=== PATIENT | male | born 1960 | race Caucasian/White ===

== ENCOUNTER 2017-02-20 20:31 | Emergency (ER) | payer BC ==
[2017-02-20] MEDS ORDERED: Benzocaine 20% Topical Spray UD MUCMEM ONE (21:04)
[2017-02-20] MEDS ORDERED: Lidocaine 2% Viscous Solution 15 ML Cup PO ONE (21:04)
--- NOTE | 2017-02-20 21:04 | EDM.PDOC ---
ED HPI GENERAL MEDICAL PROBLEM - General Stated Complaint: PT HAS TOOTHACHE Time Seen by Provider: 02/20/17 20:57 Source of Information: Reports: Patient History Limitations: Reports: No Limitations - History of Present Illness INITIAL COMMENTS - FREE TEXT/NARRATIVE: History of present illness: [56-year-old male presenting with complaints of dental pain. Patient was seen by dentist earlier in the week for evaluation of back molar pain on the left lower side.] Review of systems: As per history of present illness and below otherwise all systems reviewed and negative. Past medical history: As per history of present illness and as reviewed below otherwise noncontributory. Surgical history: As per history of present illness and as reviewed below otherwise noncontributory. Social history: No reported history of drug or alcohol abuse. Family history: As per history of present illness and as reviewed below otherwise noncontributory. Physical exam: HEENT: Atraumatic, normocephalic, pupils reactive, negative for conjunctival pallor or scleral icterus, mucous membranes moist, throat clear, neck supple, nontender, trachea midline. Lungs: Clear to auscultation, breath sounds equal bilaterally, chest nontender. Heart: S1S2, regular, negative for clicks, rubs, or JVD. Abdomen: Soft, nondistended, nontender. Negative for masses or hepatosplenomegaly. Negative for costovertebral tenderness. Pelvis: Stable nontender. Genitourinary: Deferred. Rectal: Deferred. Extremities: Atraumatic, negative for cords or calf pain. Neurovascular unremarkable. Neuro: Awake, alert, oriented. Cranial nerves II through XII unremarkable. Cerebellum unremarkable. Motor and sensory unremarkable throughout. Exam nonfocal. Numerous amalgam fillings noted in bilateral molars predominantly on the left side. Patient with point tenderness and intolerance to pressure on teeth Diagnostics: [] Therapeutics: [Dental balls] Impression: [#1 dental caries #2 dental abscess] Plan: [Dental balls, antibiotics,] Definitive disposition and diagnosis as appropriate pending reevaluation and review of above. - Related Data Allergies Allergy/AdvReac Type Severity Reaction Status Date / Time aspirin Allergy Cannot Verified 02/20/17 20:56 Remember Penicillins Allergy Cannot Verified 02/20/17 20:56 Remember tetracycline Allergy Cannot Verified 02/20/17 20:56 Remember Home Meds: Home Meds Albuterol [Proair HFA] 2 puff IH Q4H PRN 04/26/14 [History] Levothyroxine [Synthroid] 50 mcg PO ACBRK 04/26/14 [History] Mometasone/Formoterol [Dulera 200 MCG/5 MCG] 2 puff INH BID 04/26/14 [History] Montelukast Sodium 10 mg PO BEDTIME 04/26/14 [History] PARoxetine [Paxil] 40 mg PO DAILY 04/26/14 [History] amLODIPine Besylate [Amlodipine Besylate] 5 mg PO DAILY 04/26/14 [History] Hydrocortisone [Hydrocortisone 1% Crm] 1 gm TOP ASDIRECTED PRN 10/24/14 [History ] Olmesartan/Hydrochlorothiazide [Benicar HCT 40-12.5 MG] 1 tab PO BEDTIME [History] Pantoprazole Sodium 40 mg PO ACBREAKFAST 12/03/15 [History] Triamcinolone Acetonide [Triamcinolone Acetonide 0.1% Crm] 1 applic TOP ASDIRECTED PRN 12/03/15 [History] diphenhydrAMINE [Benadryl] 25 mg PO ASDIRECTED PRN 12/03/15 [History] Tiotropium [place] [Spiriva Respimat] 2 puff INH DAILY 02/26/16 [History] Clindamycin HCl 300 mg PO QID #40 capsule 02/20/17 [Rx] Past Medical History HEENT History: Reports: Allergic Rhinitis Other HEENT History: wears glasses Cardiovascular History: Reports: Arrhythmia, High Cholesterol, Hypertension Other Cardiovascular History: has Hollingsworth Parkinson White Syndrome Respiratory History: Reports: Asthma, Pneumothorax, Sleep Apnea Other Respiratory History: uses CPAP Gastrointestinal History: Reports: Colon Polyp, GERD Genitourinary History: Reports: None Musculoskeletal History: Reports: None Neurological History: Reports: None Psychiatric History: Reports: Anxiety Endocrine/Metabolic History: Reports: Hypothyroidism, Obesity/BMI 30+ Hematologic History: Reports: None Other Hematologic History: hx plasmapheresis in 1982 Immunologic History: Reports: None Oncologic (Cancer) History: Reports: None Dermatologic History: Reports: Other (See Below) Other Dermatologic History: atopic dermatitis - Past Surgical History Respiratory Surgical History: Reports: Other (See Below) Social & Family History - Family History Family Medical History: Noncontributory Neurological: Reports: CVA Endocrine/Metabolic: Reports: Diabetes, Type I - Tobacco Use Smoking Status *Q: Never Smoker Second Hand Smoke Exposure: No - Alcohol Use Days Per Week of Alcohol Use: 0 - Recreational Drug Use Recreational Drug Use: No Drug Use in Last 12 Months: No ED ROS GENERAL - Review of Systems Review Of Systems: See Below (History of present illness) ED EXAM, GENERAL - Physical Exam Exam: See Below (History of present illness) Course - Vital Signs Last Recorded V/S: Last Vital Signs Temp 35.9 C 02/20/17 20:56 Pulse 83 02/20/17 20:56 Resp 18 02/20/17 20:56 BP 132/88 02/20/17 20:56 Pulse Ox 94 L 02/20/17 20:56 - Orders/Labs/Meds Meds: Medications Discontinued Medications Generic Name Dose Route Start Last Admin Trade Name Freq PRN Reason Stop Dose Admin Benzocaine 2 each 02/20/17 21:04 Hurricaine One 20% MUCMEM 02/20/17 21:05 ONETIME ONE Lidocaine HCl 15 ml 02/20/17 21:04 Xylocaine 2% Viscous PO 02/20/17 21:05 ONETIME ONE Departure - Departure Time of Disposition: 21:11 Disposition: Home, Self-Care 01 Condition: Good Clinical Impression: Dental abscess - Discharge Information Prescriptions: Clindamycin HCl 300 mg PO QID #40 capsule Referrals: PCP,None [Primary Care Provider] - Additional Instructions: The following information is given to patients seen in the emergency department who are being discharged to home. This information is to outline your options for follow-up care. We provide all patients seen in our emergency department with a follow-up referral. The need for follow-up, as well as the timing and circumstances, are variable depending upon the specifics of your emergency department visit. If you don't have a primary care physician on staff, we will provide you with a referral. We always advise you to contact your personal physician following an emergency department visit to inform them of the circumstance of the visit and for follow-up with them and/or the need for any referrals to a consulting specialist. The emergency department will also refer you to a specialist when appropriate. This referral assures that you have the opportunity for follow-up care with a specialist. All of these measure are taken in an effort to provide you with optimal care, which includes your follow-up. Under all circumstances we always encourage you to contact your private physician who remains a resource for coordinating your care. When calling for follow-up care, please make the office aware that this follow-up is from your recent emergency room visit. If for any reason you are refused follow-up, please contact the [facility] Emergency Department at and asked to speak to the emergency department charge nurse. Take medication as directed Follow-up with us as discussed Return to ED as needed as discussed
[2017-02-20 21:52] VITALS: BP 128/65
== END 2017-02-20 21:26 | disposition home or self-care (01) ==
LOC: MW.ED 20:31
DX: K04.7 Periapical abscess without sinus (principal); K02.9 Dental caries, unspecified; I10 Essential (primary) hypertension; E66.9 Obesity, unspecified; Z88.6 Allergy status to analgesic agent; Z88.0 Allergy status to penicillin; Z88.1 Allergy status to other antibiotic agents; Z79.899 Other long term (current) drug therapy
CPT/HCPCS: 99282; A9270

== ENCOUNTER 2017-04-25 11:43 | Emergency (ER) | payer BC ==
[2017-04-25 11:56] VITALS: BP 112/70
--- NOTE | 2017-04-25 12:11 | EDM.PDOC ---
ED HPI GENERAL MEDICAL PROBLEM - General Chief Complaint: Respiratory Problem Stated Complaint: SORT THROAT, COUGH Time Seen by Provider: 04/25/17 12:07 Source of Information: Reports: Patient History Limitations: Reports: No Limitations - History of Present Illness INITIAL COMMENTS - FREE TEXT/NARRATIVE: HISTORY AND PHYSICAL: []56-year-old gentleman presents with 2 day history of scratchy throat allergies increasing & cough History of Present Illness: []Patient has history of asthma he is currently been taking Benadryl Patient has history of lung collapse chest tube and surgical procedure of pleurodesis. He is taking care of his elderly mother and father and has concerns that he does not get them any illnesses. Patient did have his flu vaccine this fall. Review of Systems: As per history of present illness and below otherwise all systems reviewed and negative. Past medical history: As per history of present illness and as reviewed below otherwise noncontributory. Surgical history: As per history of present illness and as reviewed below otherwise noncontributory. Social history: No reported history of drug or alcohol abuse. Family history: As per history of present illness and as reviewed below otherwise noncontributory. Physical exam: HEENT: Atraumatic, normocehpalic, pupils reactive, negative for conjunctival pallor or scleral icterus, mucous membranes moist, throat clear, neck supple, nontender, trachea midline. There is edema to his eyes and erythema has been rubbing them during the examination. Sclera with mild erythema no exudate is noted mild watering. No cervical adenopathy Lungs: Clear to auscultation, breath sounds equal bilaterally, chest non tender. Fair inspiratory expiratory effort was noted. Heart: S1S2, regular, negative for clicks, rubs, or JVD. Abdomen: Soft, nondistended, nontender. Negative for masses or hepatossplenmegaly. Negative for costovertebral tenderness. Pelvis: Stable nontender. Genitourinary: Deferred. Rectal: Deferred Extremities: Atraumatic, negative for cords or calf pain. No peripheral edema Neurovascular unremarkable. Neuro: Awake, alert, oriented. Cranial nerves II through XII unremarkable. Cerebellum unremarkable. Motor and sensory unremarkable throughout. Exam nonfocal. Chest chest with the patient all the negative aspects of the tests that have been completed Diagnostics: [Influenza, rapid strep, CBC chest x-ray.] Therapeutics: [] Impression: [#1 asthma * 2 allergies] Plan: [Discharged to home Medrol Dosepak Start taking [id number] allergy medicine daily I'll up with your primary care provider] Definitive disposition and diagnosis as appropriate pending reevaluation and review of above. Onset: Gradual (2 days) Duration: Day(s): Location: Reports: Face, Chest Severity: Mild Associated Symptoms: Reports: Cough - Related Data Allergies Allergy/AdvReac Type Severity Reaction Status Date / Time aspirin Allergy Cannot Verified 04/25/17 12:11 Remember Penicillins Allergy Cannot Verified 04/25/17 12:11 Remember tetracycline Allergy Cannot Verified 04/25/17 12:11 Remember Home Meds: Home Meds Albuterol [Proair HFA] 2 puff IH Q4H PRN 04/26/14 [History] Levothyroxine [Synthroid] 88 mcg PO ACBRK 04/26/14 [History] Mometasone/Formoterol [Dulera 200 MCG/5 MCG] 2 puff INH BID 04/26/14 [History] Montelukast Sodium 10 mg PO BEDTIME 04/26/14 [History] PARoxetine [Paxil] 40 mg PO DAILY 04/26/14 [History] amLODIPine Besylate [Amlodipine Besylate] 5 mg PO DAILY 04/26/14 [History] Hydrocortisone [Hydrocortisone 1% Crm] 1 gm TOP ASDIRECTED PRN 10/24/14 [History ] Olmesartan/Hydrochlorothiazide [Benicar HCT 40-12.5 MG] 1 tab PO BEDTIME [History] Pantoprazole Sodium 40 mg PO ACBREAKFAST 12/03/15 [History] Triamcinolone Acetonide [Triamcinolone Acetonide 0.1% Crm] 1 applic TOP ASDIRECTED PRN 12/03/15 [History] diphenhydrAMINE [Benadryl] 25 mg PO ASDIRECTED PRN 12/03/15 [History] Tiotropium [place] [Spiriva Respimat] 2 puff INH DAILY 02/26/16 [History] Clindamycin HCl 600 mg PO QID 04/25/17 [History] Past Medical History - Past Health History Medical/Surgical History: Denies Medical/Surgical History HEENT History: Reports: Allergic Rhinitis Other HEENT History: wears glasses Cardiovascular History: Reports: Arrhythmia, High Cholesterol, Hypertension Other Cardiovascular History: has Hollingsworth Parkinson White Syndrome Respiratory History: Reports: Asthma, Pneumothorax, Sleep Apnea Other Respiratory History: uses CPAP Gastrointestinal History: Reports: Colon Polyp, GERD Genitourinary History: Reports: None Musculoskeletal History: Reports: None Neurological History: Reports: None Psychiatric History: Reports: Anxiety Endocrine/Metabolic History: Reports: Hypothyroidism, Obesity/BMI 30+ Hematologic History: Reports: None Other Hematologic History: hx plasmapheresis in 1982 Immunologic History: Reports: None Oncologic (Cancer) History: Reports: None Dermatologic History: Reports: Other (See Below) Other Dermatologic History: atopic dermatitis - Past Surgical History Head Surgeries/Procedures: Reports: None Respiratory Surgical History: Reports: Other (See Below) Social & Family History - Family History Family Medical History: Noncontributory Neurological: Reports: CVA Endocrine/Metabolic: Reports: Diabetes, Type I - Tobacco Use Smoking Status *Q: Never Smoker Second Hand Smoke Exposure: No - Caffeine Use Caffeine Use: Reports: Soda - Alcohol Use Days Per Week of Alcohol Use: 0 - Recreational Drug Use Recreational Drug Use: No Drug Use in Last 12 Months: No ED ROS GENERAL - Review of Systems Review Of Systems: ROS reveals no pertinent complaints other than HPI. ED EXAM, GENERAL - Physical Exam Exam: See Below (see dictation) Course - Vital Signs Last Recorded V/S: Last Vital Signs Temp 35.8 C 04/25/17 11:51 Pulse 100 04/25/17 11:51 Resp 18 04/25/17 11:51 BP 112/70 04/25/17 11:51 Pulse Ox 95 04/25/17 11:51 - Orders/Labs/Meds Orders: Active Orders 24 hr Category Date Time Status Chest 2V [CR] Stat Exams 04/25/17 12:06 Taken CULTURE STREP A CONFIRMATION [RM] Stat Lab 04/25/17 12:01 Results STREP SCRN A RAPID W CULT CONF [RM] Stat Lab 04/25/17 12:01 Results Labs: Laboratory Tests 04/25/17 Range/Units 12:16 WBC 7.81 (4.0-11.0) K/uL RBC 4.98 (4.50-5.90) M/uL Hgb 13.4 (13.0-17.0) g/dL Hct 41.8 (38.0-50.0) % MCV 83.9 (80.0-98.0) fL MCH 26.9 L (27.0-32.0) pg MCHC 32.1 (31.0-37.0) g/dL RDW Std Deviation 46.3 (28.0-62.0) fl RDW Coeff of Kristyn 15 (11.0-15.0) % Plt Count 279 (150-400) K/uL MPV 9.50 (7.40-12.00) fL Neut % (Auto) 69.4 (48.0-80.0) % Lymph % (Auto) 19.6 (16.0-40.0) % [place] % (Auto) 7.6 (0.0-15.0) % Eos % (Auto) 2.6 (0.0-7.0) % Baso % (Auto) 0.8 (0.0-1.5) % Neut # (Auto) 5.4 (1.4-5.7) K/uL Lymph # (Auto) 1.5 (0.6-2.4) K/uL [place] # (Auto) 0.6 (0.0-0.8) K/uL Eos # (Auto) 0.2 (0.0-0.7) K/uL Baso # (Auto) 0.1 (0.0-0.1) K/uL Nucleated RBC % 0.0 /100WBC Nucleated RBCs # 0 K/uL Departure - Departure Time of Disposition: 12:46 Disposition: Home, Self-Care 01 Condition: Good Clinical Impression: Acute exacerbation of asthma with allergic rhinitis - Discharge Information Referrals: Sachi Rivers DO [Primary Care Provider] - Forms: ED Department Discharge Additional Instructions: The following information is given to patients seen in the emergency department who are being discharged to home. This information is to outline your options for follow-up care. We provide all patients seen in our emergency department with a follow-up referral. The need for follow-up, as well as the timing and circumstances, are variable depending upon the specifics of your emergency department visit. If you don't have a primary care physician on staff, we will provide you with a referral. We always advise you to contact your personal physician following an emergency department visit to inform them of the circumstance of the visit and for follow-up with them and/or the need for any referrals to a consulting specialist. The emergency department will also refer you to a specialist when appropriate. This referral assures that you have the opportunity for followup care with a specialist. All of these measure are taken in an effort to provide you with optimal care, which includes your followup. Under all circumstances we always encourage you to contact your private physician who remains a resource for coordinating your care. When calling for followup care, please make the office aware that this follow-up is from your recent emergency room visit. If for any reason you are refused follow-up, please contact the [facility] emergency department at and asked to speak to the emergency department charge nurse. Prescription has been written for promethazine with codeine [id number] allergy medicine daily Follow-up with your primary care provider next week Medrol Dosepak - My Orders Last 24 Hours: My Active Orders 04/25/17 12:01 CULTURE STREP A CONFIRMATION [RM] Stat STREP SCRN A RAPID W CULT CONF [RM] Stat 04/25/17 12:06 Chest 2V [CR] Stat - Assessment/Plan Last 24 Hours: My Active Orders 04/25/17 12:01 CULTURE STREP A CONFIRMATION [RM] Stat STREP SCRN A RAPID W CULT CONF [RM] Stat 04/25/17 12:06 Chest 2V [CR] Stat
--- NOTE | 2017-04-28 13:49 | CR ---
EXAM DATE: 04/25/17 PATIENT'S AGE: 56 Patient: MARYSOL WHITE Facility: [place], [place] Site . Site : [id number] Study: XRay Chest [id number] 12:30:29 PM Ordering Physician: Doctor Orosco Final Report: Indication : Pain, cough, shortness of breath. Comparison: None. Findings: Compression deformities are noted of lower thoracic vertebral bodies which has resulted in a slight kyphotic deformity. Linear scar or platelike atelectasis is noted in the left lower lung. The right lung is clear. Allowing for patient body habitus and suboptimal history effort, the cardiac and mediastinal silhouettes are within normal limits. The pulmonary vasculature is normal. Impression: Left lower lung linear platelike atelectasis or scar otherwise no acute cardiopulmonary abnormality. Dictated by Alvina Bello MD @ Apr 25 2017 12:52PM (Electronic Signature) Report Signed by Proxy. JULIO
== END 2017-04-25 12:55 | disposition home or self-care (01) ==
LOC: MW.ED 11:43
DX: J45.901 Unspecified asthma with (acute) exacerbation (principal); E78.00 Pure hypercholesterolemia, unspecified; I10 Essential (primary) hypertension; Z88.6 Allergy status to analgesic agent; Z88.0 Allergy status to penicillin; Z88.1 Allergy status to other antibiotic agents; Z79.899 Other long term (current) drug therapy
CPT/HCPCS: 36415; 71020; 71020-26; 85025; 87081; 87804; 87880; 99283

== ENCOUNTER 2020-01-27 07:28 | Day surgery (SDC) | payer BC ==
[~2020-01-27 07:28] MED LIST: Lactated Ringers 1,000 ML IV SCH
[2020-01-27] MEDS ORDERED: fentaNYL 100 MCG/2 ML SDV ONE (07:59)
[2020-01-27] MEDS ORDERED: Midazolam 1 MG/ML 2 ML SDV ONE (07:59)
[2020-01-27] MEDS ORDERED: Propofol 200 MG/20 ML SDV ONE ×2 (07:59→09:25)
--- NOTE | 2020-01-27 08:17 | PCM.PREANE ---
Preanesthetic Assessment - Anesthesia/Transfusion/Family Hx Anesthesia History: Prior Anesthesia Without Reaction Family History of Anesthesia Reaction: No Transfusion History: No Prior Transfusion(s) - Review of Systems General: No Symptoms Pulmonary: No Symptoms Cardiovascular: No Symptoms Gastrointestinal: No Symptoms Neurological: No Symptoms Other: Reports: None - Physical Assessment NPO Status Date: 01/26/20 Height: 5 ft 9 in Weight: 105.233 kg ASA Class: 2 Mental Status: Alert & Oriented x3 Airway Class: Mallampati = 2 Dentition: Reports: Normal Dentition ROM/Head Extension: Full Lungs: Clear to Auscultation, Normal Respiratory Effort Cardiovascular: Regular Rate, Regular Rhythm - Allergies Allergies/Adverse Reactions: Allergies Allergy/AdvReac Type Severity Reaction Status Date / Time aspirin Allergy Cannot Verified 01/25/20 10:30 Remember corn Allergy Rash Verified 01/25/20 10:44 Penicillins Allergy Cannot Verified 01/25/20 10:30 Remember tetracycline Allergy Cannot Verified 01/25/20 10:30 Remember - Blood Blood Available: No - Anesthesia Plan Pre-Op Medication Ordered: None - Acknowledgements Anesthesia Type Planned: General Anesthesia (tiva) Pt an Appropriate Candidate for the Planned Anesthesia: Yes Alternatives and Risks of Anesthesia Discussed w Pt/Guardian: Yes Pt/Guardian Understands and Agrees with Anesthesia Plan: Yes Additional Comments: PMH: mild asthma, severe exczema, htn, thyroid replacement PLAN: tiva PreAnesthesia Questionnaire - Past Health History Medical/Surgical History: Denies Medical/Surgical History HEENT History: Reports: Allergic Rhinitis Other HEENT History: wears glasses Cardiovascular History: Reports: Hypertension Respiratory History: Reports: Asthma, Pneumothorax, Sleep Apnea Other Respiratory History: uses CPAP every night Gastrointestinal History: Reports: Colon Polyp, Diverticulosis, GERD Genitourinary History: Reports: None Musculoskeletal History: Reports: None Neurological History: Reports: None Psychiatric History: Reports: Anxiety Endocrine/Metabolic History: Reports: Hypothyroidism, Obesity/BMI 30+ Hematologic History: Reports: None Immunologic History: Reports: None Oncologic (Cancer) History: Reports: None Dermatologic History: Reports: Other (See Below) Other Dermatologic History: atopic dermatitis - Past Surgical History Head Surgeries/Procedures: Reports: None HEENT Surgical History: Reports: None Cardiovascular Surgical History: Reports: None Respiratory Surgical History: Reports: Other (See Below) Other Respiratory Surgeries/Procedures: Thoracoscopy with Pleural Scarification GI Surgical History: Reports: Colonoscopy Male Surgical History: Reports: None Endocrine Surgical History: Reports: None Neurological Surgical History: Reports: None Musculoskeletal Surgical History: Reports: None Oncologic Surgical History: Reports: None Dermatological Surgical History: Reports: None - SUBSTANCE USE Smoking Status *Q: Never Smoker Recreational Drug Use History: No - HOME MEDS Home Medications: Home Meds Albuterol [Proair HFA] 2 puff IH Q4H PRN 04/26/14 [History] Montelukast Sodium 10 mg PO QAM 04/26/14 [History] PARoxetine [Paxil] 40 mg PO DAILY 04/26/14 [History] amLODIPine Besylate [Amlodipine Besylate] 5 mg PO BEDTIME 04/26/14 [History] Olmesartan/Hydrochlorothiazide [Benicar HCT 40-12.5 MG] 1 tab PO BEDTIME 12/03/15 [History] Triamcinolone Acetonide [Triamcinolone Acetonide 0.1% Crm] 1 applic TOP ASDIRECTED PRN 12/03/15 [History] Tiotropium [place] [Spiriva Respimat] 2 puff INH QAM 02/26/16 [History] Dupilumab [Dupixent Syringe] 1 dose SQ ASDIRECTED 01/25/20 [History] Fluorometholone [Fluorometholone 0.1% Ophth Susp] 1 drop EYEBOTH ASDIRECTED 0 01/25/20 [History] Hydrocortisone [Hydrocortisone 1% Crm] 1 applic TOP ASDIRECTED PRN 01/25/20 [History] Levothyroxine 112 mcg PO QAM 01/25/20 [History] Mometasone/Formoterol [Dulera 200 Mcg-5 Mcg Inhaler] 1 puff INH BID 01/25/20 [History] - CURRENT (IN HOUSE) MEDS Current Meds: Current Medications Lactated Ringer's (Ringers, Lactated) 1,000 mls @ 125 mls/hr IV ASDIRECTED JULIUS Discontinued Medications Fentanyl (Sublimaze) Confirm Administered Dose 100 mcg .ROUTE .STK-MED ONE Stop: 01/27/20 08:00 Lidocaine HCl (Xylocaine-Mpf 1%) Confirm Administered Dose 5 ml .ROUTE .STK-MED ONE Stop: 01/27/20 08:00 Midazolam HCl (Versed 1 Mg/Ml) Confirm Administered Dose 2 mg .ROUTE .STK-MED ONE Stop: 01/27/20 08:00 Propofol (Diprivan 20 Ml) Confirm Administered Dose 400 mg .ROUTE .STK-MED ONE Stop: 01/27/20 08:00
[2020-01-27] MEDS ORDERED: ePHEDrine 50 MG/ML SDV ONE (09:02)
[2020-01-27] MEDS ORDERED: Lactated Ringers 1,000 ML IV SCH (09:45)
--- NOTE | 2020-01-27 09:45 | PCM.OPNOTE ---
- General Post-Op/Procedure Note Date of Surgery/Procedure: 01/27/20 Operative Procedure(s): Colonoscopy with multiple cold polypectomies from the cecum, ascending colon, transverse colon, sigmoid and rectum. Pre Op Diagnosis: Change in bowel habits. Personal history of colon polyps. Post-Op Diagnosis: Cecal, ascending colon, transverse colon, sigmoid and rectal polyps. Pancolonic diverticulosis Anesthesia Technique: MAC (ASA III) Primary Surgeon: Javier Kaur Liner Worker: Sandra Bangura Condition: Good Free Text/Narrative:: DICTATION [id number] CPT CODE 20989
[2020-01-27] MEDS ORDERED: Atropine 0.1 MG/ML 10 ML Syringe IVPUSH PRN ×2 (09:54)
[2020-01-27] MEDS ORDERED: Naloxone 0.4 MG/ML Syringe IVPUSH PRN (09:54)
[2020-01-27] MEDS ORDERED: fentaNYL 100 MCG/2 ML SDV IVPUSH PRN (09:54)
[2020-01-27] MEDS ORDERED: Albuterol 0.083% 2.5 MG/3 ML Neb Soln NEB PRN (09:54)
[2020-01-27] MEDS ORDERED: EPINEPHrine 1:10,000 1 MG/10 ML Syringe IVPUSH PRN (09:54)
[2020-01-27] MEDS ORDERED: 50% Dextrose in Water 50 ML Syringe IVPUSH PRN (09:54)
--- NOTE | 2020-01-27 10:06 | PCM48HPAN ---
Post Anesthesia Note - EVALUATION WITHIN 48HRS OF ANESTHETIC Vital Signs in Normal Range: Yes Patient Participated in Evaluation: Yes Respiratory Function Stable: Yes Airway Patent: Yes Cardiovascular Function Stable: Yes Hydration Status Stable: Yes Pain Control Satisfactory: Yes Nausea and Vomiting Control Satisfactory: Yes Mental Status Recovered: Yes Vital Signs: Last Vital Signs Temp 97.2 F 01/27/20 07:55 Pulse 79 01/27/20 09:58 Resp 14 01/27/20 09:58 BP 96/57 L 01/27/20 09:58 Pulse Ox 94 L 01/27/20 09:58
--- NOTE | 2020-01-27 10:06 | PCM.POSTAN ---
POST ANESTHESIA ASSESSMENT - MENTAL STATUS Mental Status: Alert, Oriented - VITAL SIGNS Vital Signs: Last Vital Signs Temp 97.2 F 01/27/20 07:55 Pulse 79 01/27/20 09:58 Resp 14 01/27/20 09:58 BP 96/57 L 01/27/20 09:58 Pulse Ox 94 L 01/27/20 09:58 - RESPIRATORY Respiratory Status: Respiratory Rate WNL, Airway Patent, O2 Saturation Stable - CARDIOVASCULAR CV Status: Pulse Rate WNL, Blood Pressure Stable - GASTROINTESTINAL GI Status: No Symptoms - POST OP HYDRATION Hydration Status: Adequate & Stable
[2020-01-27 10:28] VITALS: BP 102/64; PULSE 71
--- NOTE | 2020-01-27 12:36 | OR ---
SURGEON: Javier Kaur M.D. DATE OF PROCEDURE: 01/27/2020 OPERATION PERFORMED: Colonoscopy with multiple cold polypectomies from the cecum, ascending colon, transverse colon, sigmoid colon, and rectum. PRIMARY SURGEON: Javier Kaur MD CLUB WAITER/WAITRESS: practice assistant: Sandra Bangura, nurse practitioner student. ANESTHESIA: MAC. ASA CLASSIFICATION: III. PREOPERATIVE DIAGNOSES: 1. Change in bowel habits. 2. History of colon polyps. POSTOPERATIVE DIAGNOSES: 1. Multiple colon polyps from the cecum, ascending colon, transverse colon, sigmoid colon, and rectum. 2. Pancolonic diverticulosis. DESCRIPTION OF PROCEDURE: The patient was taken to the endoscopy room and positioned on the endoscopy table in the left lateral decubitus position. Time-out was called for appropriate identification of the patient and procedure. Monitored anesthesia care was provided. The colonoscope was inserted into the rectum and advanced with minimal difficulty to the cecum. The cecum was identified by internal landmarks and external pressure. The colonoscope was retroflexed to visualize the ascending colon from below, then straightened and slowly withdrawn. Polyps were encountered in the cecum, proximal ascending colon, transverse colon, sigmoid colon, and rectum as noted above. The patient does have pancolonic diverticular changes. The prep was excellent. The cecum, ascending colon, hepatic flexure, transverse colon, splenic flexure, descending colon, sigmoid colon, and rectum were all very well visualized. Again, multiple polyps were encountered as described above. No obvious tumors were noted. There was no stricture or spasm and there was no evidence of inflammatory bowel disease. The area of most significant diverticular change is in the sigmoid colon. Once the colonoscope was withdrawn to the rectum, it was retroflexed to visualize the anal orifice from above. One polyp was seen in a retroflexed view and this was eventually removed after the scope was straightened and slowly withdrawn. No significant hemorrhoidal changes were noted. The colonoscope was then removed with the patient having tolerated the procedure well. He was taken to recovery room in stable condition. JUDY / TEX /[id number]
== END 2020-01-27 11:10 | disposition home or self-care (01) ==
LOC: MW.SDS 07:28
PROVIDERS: ATTEND Surgery
DX: D12.3 Benign neoplasm of transverse colon (principal); D12.0 Benign neoplasm of cecum; D12.8 Benign neoplasm of rectum; D12.5 Benign neoplasm of sigmoid colon; D12.2 Benign neoplasm of ascending colon; K57.30 Diverticulosis of large intestine without perforation or abscess without bleeding; I10 Essential (primary) hypertension; E03.9 Hypothyroidism, unspecified; E66.9 Obesity, unspecified; J45.909 Unspecified asthma, uncomplicated; F32.9 Major depressive disorder, single episode, unspecified; G47.30 Sleep apnea, unspecified; K21.9 Gastro-esophageal reflux disease without esophagitis; F41.9 Anxiety disorder, unspecified; L20.9 Atopic dermatitis, unspecified; J93.9 Pneumothorax, unspecified; Z79.899 Other long term (current) drug therapy; Z86.010 Personal history of colon polyps; Z88.6 Allergy status to analgesic agent; Z88.1 Allergy status to other antibiotic agents; Z88.0 Allergy status to penicillin; Z68.34 Body mass index [BMI] 34.0-34.9, adult; Z83.71 Family history of colonic polyps; Z83.3 Family history of diabetes mellitus
CPT/HCPCS: 45380; J2001; J2250; J2704; J7120; 88305; J3010

== ENCOUNTER 2021-09-13 14:36 | Emergency (ER) | payer BC ==
[2021-09-13 16:45] VITALS: BP 132/71; PULSE 77
== END 2021-09-13 16:44 | disposition home or self-care (01) ==
LOC: MW.ED 14:36
DX: S80.02XA Contusion of left knee, initial encounter (principal); J45.909 Unspecified asthma, uncomplicated; E03.9 Hypothyroidism, unspecified; I10 Essential (primary) hypertension; E66.9 Obesity, unspecified; Z68.36 Body mass index [BMI] 36.0-36.9, adult; Z79.899 Other long term (current) drug therapy; Z88.6 Allergy status to analgesic agent; Z91.018 Allergy to other foods; Z88.0 Allergy status to penicillin; Z88.1 Allergy status to other antibiotic agents; W01.0XXA Fall on same level from slipping, tripping and stumbling without subsequent striking against object, initial encounter
CPT/HCPCS: 71046; 71046-26; 730902650; 73090-50; 73562-26-LT; 73562-LT; 99283-25

== ENCOUNTER 2021-11-07 20:10 | Emergency (ER) | payer BC ==
[2021-11-07 21:25] LABS: CORONAVIRUS COVID-19 NAA POSITIVE (NEGATIVE); INFLUENZA A NAA NEGATIVE (NEGATIVE); INFLUENZA B NAA NEGATIVE (NEGATIVE)
[2021-11-08 00:48] VITALS: BP 124/86; PULSE 89
== END 2021-11-07 22:00 | disposition home or self-care (01) ==
LOC: MW.ED 20:10
DX: U07.1 COVID-19 (principal); I10 Essential (primary) hypertension; E03.9 Hypothyroidism, unspecified; E66.9 Obesity, unspecified; Z68.34 Body mass index [BMI] 34.0-34.9, adult; Z88.6 Allergy status to analgesic agent; Z88.0 Allergy status to penicillin; Z88.1 Allergy status to other antibiotic agents; Z91.018 Allergy to other foods; Z79.899 Other long term (current) drug therapy
CPT/HCPCS: 0240U; 99283

== ENCOUNTER 2022-06-27 09:15 | Day surgery (SDC) | payer BC ==
[2022-06-27] MEDS ORDERED: fentaNYL 100 MCG/2 ML SDV ONE (10:28)
[2022-06-27] MEDS ORDERED: Lidocaine 2% 5 ML SDV ONE (10:28)
[2022-06-27] MEDS ORDERED: Propofol 200 MG/20 ML SDV ONE ×2 (10:28→11:20)
[2022-06-27] MEDS ORDERED: Lactated Ringers 1,000 ML IV SCH (11:45)
[2022-06-27 11:50] VITALS: PULSE 72
[2022-06-27 13:42] VITALS: BP 124/74
== END 2022-06-27 12:30 | disposition home or self-care (01) ==
LOC: MW.SDS 09:15
PROVIDERS: ATTEND Surgery
DX: R19.4 Change in bowel habit (principal); D12.2 Benign neoplasm of ascending colon; D12.5 Benign neoplasm of sigmoid colon; D12.3 Benign neoplasm of transverse colon; K57.30 Diverticulosis of large intestine without perforation or abscess without bleeding; F41.9 Anxiety disorder, unspecified; J45.909 Unspecified asthma, uncomplicated; F32.A Depression, unspecified; I10 Essential (primary) hypertension; E78.5 Hyperlipidemia, unspecified; E66.9 Obesity, unspecified; E03.9 Hypothyroidism, unspecified; Z86.010 Personal history of colon polyps; Z88.0 Allergy status to penicillin; Z88.6 Allergy status to analgesic agent; Z88.8 Allergy status to other drugs, medicaments and biological substances; Z91.018 Allergy to other foods; Z79.899 Other long term (current) drug therapy; Z79.890 Hormone replacement therapy; Z98.890 Other specified postprocedural states; Z68.36 Body mass index [BMI] 36.0-36.9, adult
CPT/HCPCS: 45380; J2704; J3010; J7120; J3490

== ENCOUNTER 2023-04-23 18:57 | Emergency (ER) | payer BC ==
[2023-04-23 21:45] VITALS: BP 123/78; PULSE 81
== END 2023-04-23 21:30 | disposition home or self-care (01) ==
LOC: MW.ED 18:57
DX: R04.0 Epistaxis (principal); I10 Essential (primary) hypertension; E03.9 Hypothyroidism, unspecified; E66.9 Obesity, unspecified; Z79.899 Other long term (current) drug therapy; Z88.0 Allergy status to penicillin; Z88.6 Allergy status to analgesic agent; Z91.018 Allergy to other foods; Z88.8 Allergy status to other drugs, medicaments and biological substances; Z68.34 Body mass index [BMI] 34.0-34.9, adult
CPT/HCPCS: 99284

== ENCOUNTER 2023-09-15 09:08 | Emergency (ER) | payer BC ==
[2023-09-15] MEDS: Oxymetazoline 0.05% Nasal Spray 30 ML Bottle NAS ONE (10:19)
[2023-09-15 14:08] VITALS: BP 114/72; PULSE 72
== END 2023-09-15 11:49 | disposition home or self-care (01) ==
LOC: MW.ED 09:08
DX: R04.0 Epistaxis (principal); J45.909 Unspecified asthma, uncomplicated; Z88.6 Allergy status to analgesic agent; Z91.018 Allergy to other foods; Z88.0 Allergy status to penicillin; Z88.8 Allergy status to other drugs, medicaments and biological substances; Z95.5 Presence of coronary angioplasty implant and graft; Z79.51 Long term (current) use of inhaled steroids; Z79.899 Other long term (current) drug therapy; Z75.8 Other problems related to medical facilities and other health care
CPT/HCPCS: 30903; 99283; A9270; 30901

== ENCOUNTER 2023-09-18 08:30 | Emergency (ER) | payer BC ==
[2023-09-18 08:41] VITALS: BP 124/84; PULSE 96
[2023-09-18] MEDS: Oxymetazoline 0.05% Nasal Spray 30 ML Bottle NAS ONE (09:24)
== END 2023-09-18 11:34 | disposition home or self-care (01) ==
LOC: MW.ED 08:30
DX: R04.0 Epistaxis (principal); J45.909 Unspecified asthma, uncomplicated; Z95.5 Presence of coronary angioplasty implant and graft; Z88.5 Allergy status to narcotic agent; Z88.0 Allergy status to penicillin; Z88.8 Allergy status to other drugs, medicaments and biological substances; Z79.51 Long term (current) use of inhaled steroids; Z79.899 Other long term (current) drug therapy; Z75.8 Other problems related to medical facilities and other health care
CPT/HCPCS: 99283; A9270

== ENCOUNTER 2023-12-27 23:31 | Emergency (ER) | payer BC ==
[2023-12-27] MEDS ORDERED: Tranexamic Acid IN NACL,ISO-OS 1,000 MG in Premix Bag 1 BAG IV SCH (23:45)
[2023-12-28] MEDS: Tranexamic Acid 1,000 MG/10 ML Vial TOP ONE (00:03)
[2023-12-28] MEDS: Oxymetazoline 0.05% Nasal Spray 30 ML Bottle NAS ONE (00:03)
[2023-12-28 01:26] VITALS: BP 110/64; PULSE 77
== END 2023-12-28 01:25 | disposition home or self-care (01) ==
LOC: MW.ED 23:31
DX: R04.0 Epistaxis (principal); J45.909 Unspecified asthma, uncomplicated; Z79.899 Other long term (current) drug therapy; Z88.8 Allergy status to other drugs, medicaments and biological substances; Z88.0 Allergy status to penicillin; Z91.018 Allergy to other foods
CPT/HCPCS: 99283; A9270; J3490

== ENCOUNTER 2024-04-17 11:15 | Emergency (ER) | payer BC ==
[2024-04-17 11:32] VITALS: BP 119/82; PULSE 88
[2024-04-17] MEDS: Acetaminophen 325 MG Tab PO ONE (11:58)
[2024-04-17] MEDS: Ondansetron 4 MG Tab.DIS PO ONE (11:58)
== END 2024-04-17 12:30 | disposition home or self-care (01) ==
LOC: MW.ED 11:15
DX: B34.9 Viral infection, unspecified (principal); J45.909 Unspecified asthma, uncomplicated; Z88.0 Allergy status to penicillin; Z88.1 Allergy status to other antibiotic agents; Z88.6 Allergy status to analgesic agent; Z91.018 Allergy to other foods; Z79.51 Long term (current) use of inhaled steroids; Z79.890 Hormone replacement therapy; Z79.899 Other long term (current) drug therapy; Z75.8 Other problems related to medical facilities and other health care
CPT/HCPCS: 87428; 99283; A9270

== ENCOUNTER 2024-07-23 10:15 | Emergency (ER) | payer BC ==
[2024-07-24 19:55] VITALS: BP 121/72; PULSE 82
== END 2024-07-23 14:02 | disposition home or self-care (01) ==
LOC: MW.ED 10:15
DX: S80.212A Abrasion, left knee, initial encounter (principal); R07.89 Other chest pain; J45.909 Unspecified asthma, uncomplicated; Z75.8 Other problems related to medical facilities and other health care; Z79.82 Long term (current) use of aspirin; Z88.0 Allergy status to penicillin; Z91.018 Allergy to other foods; Z88.8 Allergy status to other drugs, medicaments and biological substances; Z79.51 Long term (current) use of inhaled steroids; Z79.899 Other long term (current) drug therapy; Z95.5 Presence of coronary angioplasty implant and graft; W01.0XXA Fall on same level from slipping, tripping and stumbling without subsequent striking against object, initial encounter; Y93.89 Activity, other specified
CPT/HCPCS: 71101-26-RT; 71101-RT; 73562-26-LT; 73562-LT; 99283

== ENCOUNTER 2025-02-08 12:12 | Emergency (ER) | payer BC ==
[2025-02-08 12:24] VITALS: BP 119/63; PULSE 86
== END 2025-02-08 13:33 | disposition home or self-care (01) ==
LOC: MW.ED 12:12
DX: J06.9 Acute upper respiratory infection, unspecified (principal); J45.909 Unspecified asthma, uncomplicated; Z75.3 Unavailability and inaccessibility of health-care facilities; Z79.899 Other long term (current) drug therapy; Z79.51 Long term (current) use of inhaled steroids; Z79.890 Hormone replacement therapy; Z88.8 Allergy status to other drugs, medicaments and biological substances; Z88.0 Allergy status to penicillin; Z88.6 Allergy status to analgesic agent; Z91.048 Other nonmedicinal substance allergy status
CPT/HCPCS: 71045; 71045-26; 87428-QW; 87651; 99283

== ENCOUNTER 2025-02-25 09:46 | Emergency (ER) | payer BC ==
[2025-02-25 11:25] VITALS: BP 107/74; PULSE 77
== END 2025-02-25 11:25 | disposition home or self-care (01) ==
LOC: MW.ED 09:46
DX: J40 Bronchitis, not specified as acute or chronic (principal); M19.90 Unspecified osteoarthritis, unspecified site; Z88.6 Allergy status to analgesic agent; Z88.0 Allergy status to penicillin; Z91.018 Allergy to other foods; Z91.048 Other nonmedicinal substance allergy status; Z79.82 Long term (current) use of aspirin; Z79.890 Hormone replacement therapy; Z79.899 Other long term (current) drug therapy; Z75.3 Unavailability and inaccessibility of health-care facilities
CPT/HCPCS: 71046; 71046-26; 87428-QW; 87651; 99283